=== PATIENT | female | born 1955 | race American Indian/Alaskan Native ===

== ENCOUNTER 2017-06-13 11:11 | Day surgery (SDC) | payer MEDICAID ==
[2017-06-12 13:30] LABS: Basophils % (Auto) 0.5 % (0.0-1.8); Hemoglobin 11.9 gm/dl (10.1-14.3); Lymphocytes % (Auto) 35.3 % (13.4-35.0); Mean Corpuscular HGB Conc 32 % (30-34); Mean Corpuscular Hemoglobin 29 pg (28-32); Mean Corpuscular Volume 89 fl (79-97); Monocytes # (Auto) 0.6 K/mm3 (0.0-0.8); Monocytes % (Auto) 10.3 % (0.0-7.3); Platelet Count 175 K/mm3 (140-440); Red Blood Count 4.17 M/mm3 (3.65-5.03); Red Cell Distribution Width 15.7 % (13.2-15.2)
--- NOTE | 2017-06-12 14:07 | Anesthesia Consultation ---
Anesthesia Consult and Med Hx Date of service: 06/12/17 - Airway ROM Head & Neck: Adequate Mental/Hyoid Distance: Adequate Mallampati Class: Class III Intubation Access Assessment: Possibly Difficult - Pulmonary Exam CTA: Yes - Cardiac Exam Cardiac Exam: RRR - Pre-Operative Health Status ASA Pre-Surgery Classification: ASA3 Proposed Anesthetic Plan: General - Pulmonary Hx Smoking: Yes (FOR 5 YEARS QUIT 1989) Hx Asthma: Yes SOB: Yes (WEARS 2L O2) - Cardiovascular System Hx Hypertension: Yes (10 YEARS) - Central Nervous System Hx Back Pain: Yes (HERNIATED DISC) Hx Psychiatric Problems: Yes - Gastrointestinal Hx Ulcer: Yes - Other Systems Hx Alcohol Use: No Hx Substance Use: No Hx Cancer: No
[~2017-06-13 11:11] MED LIST: MARCAINE 0.25% INFILTRATI ONE; NACL 0.9% 1000 ML 1,000 ML IV SCH; NACL 0.9% IR ONE; PEPCID PO NR; VANCOMYCIN/NS 1 GM/250 ML 1 GM/250 ML BAG IV SCH; VERSED IV NR
[2017-06-13] MEDS ORDERED: NACL BACTERIOSTATIC INFILTRATI ONE (12:13)
[2017-06-13] MEDS ORDERED: VERSED IV NR (14:00)
[2017-06-13] MEDS ORDERED: PEPCID PO NR (14:00)
[2017-06-13] MEDS ORDERED: DIPRIVAN 10 MG/ML IV ONE (14:11)
[2017-06-13] MEDS ORDERED: DILAUDID ONE (14:12)
--- NOTE | 2017-06-13 14:34 | Anesthesia Day of Surgery ---
Anesthesia Day of Surgery - Day of Surgery Patient Examined: Yes Patient H&P Reviewed: Yes Patient is NPO: Yes Beta Blockers: Yes Cardiac Clearance: Yes
[2017-06-13] MEDS ORDERED: ZOFRAN ONE (15:18)
[2017-06-13] MEDS ORDERED: ZEMURON IV ONE (15:18)
[2017-06-13] MEDS ORDERED: TORADOL ONE (15:18)
[2017-06-13] MEDS ORDERED: DECADRON ONE (15:18)
[2017-06-13] MEDS ORDERED: QUELICIN ONE (15:23)
--- NOTE | 2017-06-13 15:34 | Operative Report ---
Operative Report Operative Report: Date of procedure: 06/13/2017 Pre-operative diagnosis: Biliary colic, fatty liver Post-operative diagnosis: Same Procedure name(s): Laparoscopic cholecystectomy, liver biopsy Surgeon: Ignacio Cespedes MD Experimental Flight Test Mechanic: Husam Farncisco M.D. Anesthesia: General EBL: Minimal Complications: None Instrument Count: correct Indications: This is a 61-year-old female with a history of right upper quadrant abdominal pain. She was evaluated and found to have a biliary etiology as well as a fatty liver on ultrasound. She was offered the above named procedures a possible treatment modality. The risks and benefits discussed until all questions were answered. She was subsequently brought to the OR. Findings: As above Procedure: We reviewed the informed consent. We placed the patient supine upon the table. After adequate anesthesia was reached, the patient was prepped and draped in usual sterile fashion. A 5 mm incision was made the level of umbilicus and a Veress needle was placed at this position. The abdomen was then insufflated to 15 mmHg and a 5 mm trocar was placed through the umbilical incision. We inserted the camera at this time. Under direct vision and after infiltration of local anesthetic an 11 mm port was placed in the epigastric location. This was followed by placement of two five mm ports in the right upper quadrant. We identified the gallbladder and the fundus was grasped. This was retracted superiorly. We then grasped the infundibulum and retracted it laterally. At this time we dissected free the cystic duct infundibular junction until the triangle of Calot was clearly identified. We placed 3 clips proximally on the cystic duct, 2 distally. We placed 2 clips proximally on the cystic artery. We transected the cystic duct sharply. We transected the cystic artery using electrocautery. We then dissected the gallbladder free from its fossa using electrocautery. This was placed in Endo Catch bag and removed the abdomen to be sent to pathology for further evaluation. Site was chosen approximately 2 fingerbreadths below the right costal margin. This was infiltrated with local anesthetic. A 1-2 mm incision was then made and through this we placed a core biopsy needle. This was directed to the right hepatic lobe. It was inserted and the biopsy was obtained. We evaluated the specimen for adequacy and this was sent to pathology for further evaluation. We assured hemostasis at this time. We then evacuated the insufflation. We removed all ports and closed all port sites using a 4-0 Monocryl in a subcuticular fashion. The wounds were bandaged sterilely. The patient tolerated procedure well. They were taken to PACU in no apparent distress after extubation.
--- NOTE | 2017-06-13 15:36 | Short Stay Summary ---
Short Stay Documentation Date of service: 06/13/17 - Allergies and Medications Current Medications: Allergies acetaminophen [From Tylenol-Codeine #3] Allergy (Verified 06/12/17 08:58) CHEST PAIN codeine [From Tylenol-Codeine #3] Allergy (Verified 06/12/17 08:58) CHEST PAIN latex Allergy (Verified 06/12/17 08:58) Hives Penicillins Allergy (Verified 06/12/17 08:58) Itching AND BURNING Sulfa (Sulfonamide Antibiotics) Allergy (Verified 06/12/17 08:58) BURNING SENSATION INSIDE prednisone Adverse Reaction (Verified 06/12/17 08:58) CONTRAINDICATED DUE TO ESRD Home Medications Medication Instructions Recorded Confirmed Last Taken Type ALPRAZolam [Xanax TAB] 0.25 mg PO DAILY 06/12/17 06/12/17 06/12/17 History Acetaminophen [Tylenol Arthritis] 650 mg PO PRN PRN 06/12/17 06/12/17 06/12/17 History Albuterol Sulfate [Proventil Hfa] 6.7 gm IH Q6H 06/12/17 06/13/17 06/13/17 09: 00 History Amitriptyline [Elavil] 50 mg PO BID 06/12/17 06/12/17 06/12/17 History Amitriptyline [Elavil] 75 mg PO QHS 06/12/17 06/12/17 06/12/17 History Aspirin [Adult Low Dose Aspirin EC] 81 mg PO DAILY 06/12/17 06/13/17 06/12/17 History Calcitriol [Rocaltrol] 0.5 mcg PO QDAY 06/12/17 06/12/17 06/12/17 History Cholecalciferol (Vitamin D3) 50,000 unit PO QWEEK 06/12/17 06/13/17 06/11/17 History [Vitamin D3] Colchicine [Colcrys] 0.6 mg PO DAILY 06/12/17 06/12/17 06/12/17 History Febuxostat [Uloric] 40 mg PO QDAY 06/12/17 06/12/17 06/12/17 History Fentanyl 25 mg TRANSDERMA Q72H 06/12/17 06/13/17 06/09/17 History Fluticasone [Flonase] 1 spray NS BID 06/12/17 06/12/17 06/12/17 History Fluticasone/Salmeterol [Advair 1 puff IH BID 06/12/17 06/13/17 06/13/17 09:00 History Diskus 500-50 mcg] Furosemide [Lasix] 60 mg PO BID 06/12/17 06/13/17 06/12/17 History Metoprolol [Lopressor] 25 mg PO DAILY 06/12/17 06/13/17 06/13/17 09:00 History Pregabalin [Lyrica] 75 mg PO BID 06/12/17 06/12/17 06/12/17 History Tizanidine HCl [Zanaflex] 1 mg PO BID PRN 06/12/17 06/12/17 06/12/17 History Zolpidem [Ambien] 10 mg PO QHS 06/12/17 06/12/17 06/12/17 History diphenhydrAMINE [Benadryl CAP] 25 mg PO QHS PRN 06/12/17 06/12/17 06/12/17 History oxyCODONE /ACETAMINOPHEN [Percocet 1 tab PO Q6HR PRN 06/12/17 06/12/17 06/12/17 History 5/325] Losartan Potassium 50 mg PO BID 06/13/17 06/13/17 06/12/17 History Ranitidine HCl [Acid Entry Level Programmer] 150 mg PO BID 06/13/17 06/13/17 06/13/17 09:00 History Active Medications Famotidine (Pepcid) 20 mg PO PREOP NR Stop: 06/13/17 23:59 Last Admin: 06/13/17 13:21 Dose: 20 mg Sodium Chloride (Nacl 0.9% 1000 Ml) 1,000 mls @ 100 mls/hr IV DIRECT BRAYDEN Last Admin: 06/13/17 12:45 Dose: 100 mls/hr Vancomycin HCl (Vancomycin/Ns 1 Gm/250 Ml) 1 gm in 250 mls @ 166.667 mls/hr IV PREOP BRAYDEN Last Admin: 06/13/17 13:52 Dose: 166.667 mls/hr Midazolam HCl (Versed) 2 mg IV PREOP NR Stop: 06/13/17 23:59 - Brief post op/procedure progress note Date of procedure: 06/13/17 Pre-op diagnosis: biliary colic, fatty liver Post-op diagnosis: same Procedure: Lap. Cholecystectomy, liver biopsy Anesthesia: ILIA Surgeon: LAURIE HERNANDEZ Panel Installer: TIERNEY CANNON Estimated blood loss: minimal Pathology: list (gallbladder, liver biopsy) Specimen disposition: to lab Condition: stable - Disposition Condition at discharge: Stable Disposition: DC- TO HOME OR SELFCARE Short Stay Discharge Plan Activity: no restrictions Diet: low fat Wound: open to air, keep clean and dry Follow up with: CARIDAD ANGUIANO MD [Primary Care Provider] - 7 Days LAURIE HERNANDEZ MD [Staff Physician] - 7 Days
[2017-06-13] MEDS ORDERED: ZOFRAN IV PRN (15:59)
--- NOTE | 2017-06-13 15:59 | Post Anesthesia Evaluation ---
- Post Anesthesia Evaluation Patient Participated: Yes Airway Patent: Yes Stable Respiratory Function: Yes Temp > 96.8F: Yes Pain Manageable: Yes Adequeate Hydration: Yes Anesthesia Complications: No
[2017-06-13] MEDS: DILAUDID IV PRN ×3 (16:23→16:43)
[2017-06-13 17:31] VITALS: BP 147/76
== END 2017-06-13 18:20 | disposition home or self-care (01) ==
LOC: OR 11:11
PROVIDERS: ATTEND Surgery
DX: K80.10 Calculus of gallbladder with chronic cholecystitis without obstruction (principal); K76.0 Fatty (change of) liver, not elsewhere classified; I13.2 Hypertensive heart and chronic kidney disease with heart failure and with stage 5 chronic kidney disease, or end stage renal disease; N18.6 End stage renal disease; I50.9 Heart failure, unspecified; K21.9 Gastro-esophageal reflux disease without esophagitis; J45.909 Unspecified asthma, uncomplicated; M19.90 Unspecified osteoarthritis, unspecified site; M10.9 Gout, unspecified; F41.9 Anxiety disorder, unspecified; F32.9 Major depressive disorder, single episode, unspecified; Z99.2 Dependence on renal dialysis; Z90.710 Acquired absence of both cervix and uterus; Z98.890 Other specified postprocedural states; Z88.0 Allergy status to penicillin; Z88.2 Allergy status to sulfonamides; Z88.8 Allergy status to other drugs, medicaments and biological substances; Z91.040 Latex allergy status
CPT/HCPCS: 36415; 47000; 47562; 80053; 82962; 85025; 88304; 88307; 88313; J0330; J1100; J1170; J1885; J2405; J2704; J3370; J7030